=== PATIENT | female | born 1955 | race Caucasian/White ===

== ENCOUNTER → 2016-09-05 | Outpatient (CLI) | payer BC ==
[~2016-09-05] MED LIST: ASCA500 PO; B-COCAP2 PO; B-COTAB18 PO; BND25 PO; CALCTAB7 PO; CHOL100027 PO; COEN100C3 PO; CYAN10005 PO; EPP3/2 IM; EPP3/2 INJ; LORA10TA5 PO; MULTTAB PO; OMEGCAP2 PO; PARO1TAB27 PO; PRD/1 PO; PRED20TA PO; TOCI20IN INJ
--- NOTE | 2016-09-06 07:39 | MAMMOGRAPHY REPORT ---
BILATERAL DIGITAL SCREENING MAMMOGRAM WITH CAD: 09/05/2016 CLINICAL HISTORY: Routine screening. Patient has no complaints. TECHNIQUE: Bilateral CC and MLO views were obtained. Current study was also evaluated with a Compu ter Aided Detection (CAD) system. COMPARISON: Comparison is made to exams dated: 09/03/2015 mammogram, 07/18/2013 mammogram, 08/21/2014 m ammogram, 07/10/2012 mammogram, 06/29/2011 mammogram, and 06/01/2010 mammogram - [facility]. BREAST COMPOSITION: The tissue of both breasts is heterogeneously dense, which may obscure small ma sses. FINDINGS: There are a few stable benign-appearing right breast microcalcifications. Stable asymmet ry in the superior posterior right breast on the MLO view. No new suspicious mass, architectural di stortion or cluster of microcalcifications is seen. IMPRESSION: ACR BI-RADS CATEGORY 1: NEGATIVE There is no mammographic evidence of malignancy. A 1 year screening mammogram is recommended. The p atient will receive written notification of the results. Approximately 10% of breast cancers are not detected with mammography. A negative mammographic repor t should not delay biopsy if a clinically suggestive mass is present. Loretta Salazar M.D. ay/:09/05/2016 17:59:57 Marketing Editor: Grace HUSSEIN(Jose Roberto)(M), [facility] letter sent: Normal 1/2 BI-RADS Code: ACR BI-RADS Category 1: Negative
== END | disposition home or self-care (01) ==
LOC: C.MAMM 12:48
PROVIDERS: ATTEND Internal Medicine
DX: Z12.31 Encounter for screening mammogram for malignant neoplasm of breast (principal)

== ENCOUNTER 2016-12-09 15:40 | Emergency (ER) | payer BC ==
[~2016-12-09] VITALS: Ht 167.6 cm; Wt 66.7 kg
[~2016-12-09 15:40] MED LIST changes: -B-COTAB18 PO; -BND25 PO; -COEN100C3 PO; +DIPH25CA5 PO; -EPP3/2 IM; -PRED20TA PO
[2016-12-09 15:44] VITALS: TEMP 36.4; Ht 167.6 cm; Wt 66.7 kg
[2016-12-09] MEDS ORDERED: B-COTAB18 PO (16:04)
[2016-12-09] MEDS ORDERED: RANITIDINE HCL 50 MG/100 ML D5W IV STA (16:10)
[2016-12-09] MEDS ORDERED: DiphenhydrAMINE HCL 50 MG/ML VIAL IV STA (16:10)
[2016-12-09] MEDS ORDERED: DEXAMETHASONE SOD INJ 10 MG/ML VIAL IV ONE (16:15)
[2016-12-09 16:48] VITALS: O2SAT 99
[2016-12-09 17:27] LABS: BASO % 0.3 %; BASO ABS # 0.02 K/uL (0-0.2); COMPLETE YES; EOS % 1.5 %; HEMATOCRIT 44.1 % (37-47); IG% 0.3 %; LYMPH % 25.7 %; LYMPH ABS # 1.69 K/uL (1.2-3.4); MEAN CORPUSCULAR HEMOGLOBIN 34.1 pg (25-34); MEAN CORPUSCULAR HGB CONC 36.3 g/dl (32-36); MEAN PLATELET VOLUME 9.8 fL (7.4-10.4); MONO % 7.9 %; NEUT % 64.3 %; PLATELET COUNT 244 K/uL (130-400); RED BLOOD COUNT 4.69 M/uL (4.2-5.4); WHITE BLOOD COUNT 6.57 K/uL (4.8-10.8)
[2016-12-09] MEDS ORDERED: EPINEPHRINE ADULT AUTO-INJECT 0.3 MG SYR IM PRN (17:30)
--- NOTE | 2016-12-09 17:30 | EMERGENCY ROOM VISIT NOTE ---
History First contact with patient: 16:05 Chief Complaint: ALLERGIC REACTION Stated Complaint: ALLERGIC REACTION TO BEE STING History of Present Illness The patient is a 61 year old female who presents to the Emergency Room with complaints of allergic reaction to a bee sting on her left hand. The patient states approximately 2 hours ago she reached in her mailbox and was stung by what she thinks was a wasp in her mailbox. The patient states she started getting a rash over most of her torso and arms. The patient denies any throat or chest tightness. The patient states that she has had one bee sting in the past and had swelling to the area where she got stung as well as a few hives. She was told at that time by her family doctor that if she got stung again it could be worse. The patient has an EpiPen at home but she thinks it's . The patient took 50 mg of Benadryl and a 5 mg tablet of prednisone. Review of Systems 10 system review was performed and was negative unless stated otherwise history of present illness. Past Medical/Surgical History Medical Problems: (1) Rheumatoid arthritis Family History Cancer Heart disease Hypertension Social History Smoking Status: Never Smoker Marital Status: Occupation Status: employed Current/Historical Medications Scheduled Ascorbic Acid (Vitamin C), 1 TAB PO DAILY B-Complex Vitamins (Vitamin B Complex), 1 TAB PO DAILY Cholecalciferol (Vitamin D 1000 Unit), 2,000 INTER.UNIT PO DAILY Cyanocobalamin (Vitamin B-12), 1,000 MCG PO DAILY Diphenhydramine Hcl (Benadryl), 50 MG PO Q4-6HR PRN Multivitamins/Minerals (Mvi With Minerals), 1 TAB PO DAILY [place]-3 Fatty Acids (Fish Oil), 1 CAP PO DAILY Paroxetine (Paxil), 20 MG PO DAILY Prednisone (Prednisone), 3 MG PO QAM Tocilizumab (Actemra), 1 DOSE INJ WK Allergies Coded Allergies: BEE STING (Verified Allergy, Severe, ANAPHYLAXIS, 06/12/15) Latex1 -Allergic Contact Dermititis (Unverified Allergy, Mild, 06/12/15) DEJAN Inhibitors (Verified Allergy, Unknown, 06/12/15) Adhesives (Verified Allergy, Unknown, 06/12/15) Aspirin (Verified Allergy, Unknown, SENSITIVE, 06/12/15) Physical Exam Vital Signs Date Time Temp Pulse Resp B/P (MAP) Pulse Ox O2 Delivery O2 Flow Rate FiO2 12/09/16 17:01 66 96 12/09/16 16:59 163/87 12/09/16 16:49 97 Room Air 12/09/16 16:48 99 Room Air 12/09/16 16:40 68 20 99 12/09/16 16:10 68 28 99 12/09/16 16:00 136/84 12/09/16 15:56 75 12/09/16 15:44 36.4 78 20 130/86 97 Room Air Physical Exam GENERAL: 61-year-old white female appears in no acute distress. MENTAL Status: Alert and oriented 3. PHARYNX: No erythema or edema noted. Airway is adequate. MOUTH: No edema of the lips noted. NECK: Supple, no lymphadenopathy noted. No carotid bruits noted. LUNGS: Clear auscultation without wheezes rales or rhonchi. CARDIAC: Regular rate and rhythm without murmur. Pulses is full and equal throughout. SKIN: Patient has a erythematous rash as well as hives noted on her torso, arms and hands as well as her upper thighs. Remainder of lower extremities are clear. There is no rash on her face. Medical Decision & Procedures Laboratory Results 12/09/16 16:05 Red Blood Count 4.69, Mean Corpuscular Volume 94.0, Mean Corpuscular Hemoglobin 34.1, Mean Corpuscular Hemoglobin Concent 36.3, Mean Platelet Volume 9.8, Neutrophils (%) (Auto) 64.3, Lymphocytes (%) (Auto) 25.7, Monocytes (%) (Auto) 7.9, Eosinophils (%) (Auto) 1.5, Basophils (%) (Auto) 0.3, Neutrophils # (Auto) 4.22, Lymphocytes # (Auto) 1.69, Monocytes # (Auto) 0.52, Eosinophils # (Auto) 0.10, Basophils # (Auto) 0.02 Test 12/09/16 16:05 White Blood Count 6.57 K/uL (4.8-10.8) Red Blood Count 4.69 M/uL (4.2-5.4) Hemoglobin 16.0 g/dL (12.0-16.0) Hematocrit 44.1 % (37-47) Mean Corpuscular Volume 94.0 fL (80-100) Mean Corpuscular Hemoglobin 34.1 pg (25-34) Mean Corpuscular Hemoglobin Concent 36.3 g/dl (32-36) Platelet Count 244 K/uL (130-400) Mean Platelet Volume 9.8 fL (7.4-10.4) Neutrophils (%) (Auto) 64.3 % Lymphocytes (%) (Auto) 25.7 % Monocytes (%) (Auto) 7.9 % Eosinophils (%) (Auto) 1.5 % Basophils (%) (Auto) 0.3 % Neutrophils # (Auto) 4.22 K/uL (1.4-6.5) Lymphocytes # (Auto) 1.69 K/uL (1.2-3.4) Monocytes # (Auto) 0.52 K/uL (0.11-0.59) Eosinophils # (Auto) 0.10 K/uL (0-0.5) Basophils # (Auto) 0.02 K/uL (0-0.2) RDW Standard Deviation 43.6 fL (36.4-46.3) RDW Coefficient of Variation 12.8 % (11.5-14.5) Immature Granulocyte % (Auto) 0.3 % Immature Granulocyte # (Auto) 0.02 K/uL (0.00-0.02) Medications Administered Medications (Trade) Dose Ordered Sig/Franca Route Start Time Stop Time Status Last Admin Dose Admin Dexamethasone Sodium Phosphate (Decadron Inj) 10 mg NOW ONCE IV 12/09/16 16:15 12/09/16 16:16 DC 12/09/16 16:22 10 MG Diphenhydramine HCl (Benadryl Inj) 25 mg NOW STAT IV 12/09/16 16:10 12/09/16 16:12 DC 12/09/16 16:21 25 MG Ranitidine HCl (zANTac IV) 50 mg NOW STAT IV 12/09/16 16:10 12/09/16 16:12 DC 12/09/16 16:24 50 MG ED Course The patient was evaluated. IV access was obtained. The patient was placed on a continuous pulse ox. The patient was given Decadron 10 mg IV, Benadryl 25 mg IV and Zantac 50 mg IV. The patient was reevaluated on multiple occasions. After 90 minutes the patient did not have any rash except for a small area of erythema on her left hand where she was actually stung by the wasp. The patient was given an EpiPen. The patient was discharged home in stable condition. Medical Decision Differential diagnosis include localized allergic reaction/anaphylaxis/ angioedema Impression Primary Impression: Allergic reaction Departure Information Dispostion Home / Self-Care Condition GOOD Referrals Pro,Rodney Najera M.D. (PCP) Forms HOME CARE DOCUMENTATION FORM, IMPORTANT VISIT INFORMATION Patient Instructions ED Allergic Reaction General Other, Replaced By [facility] Additional Instructions Continue Benadryl 25 mg every 6 hours until rash and/or swelling has completely resolved. Continue your prednisone as prescribed for your rheumatoid arthritis. If you have any recurrent bee stings that you get throat or chest tightness use the EpiPen as directed. Problem Qualifiers Primary Impression: Allergic reaction Encounter type: initial encounter Qualified Codes: T78.40XA - Allergy, unspecified, initial encounter
[2016-12-09 17:35] LABS: BUN/CREATININE RATIO 15.3 (10-20); CALCIUM 9.1 mg/dl (8.5-10.1); CREATININE 1.2 mg/dl (0.60-1.20); POTASSIUM 3.5 mmol/L (3.5-5.1)
[2016-12-09 17:54] VITALS: BP 177/91; PULSE 74; O2SAT 98
== END 2016-12-09 17:55 | disposition home or self-care (01) ==
LOC: C.EDB 15:41 → C.EDA 17:55
DX: T78.40XA Allergy, unspecified, initial encounter (principal); X58.XXXA Exposure to other specified factors, initial encounter; M06.9 Rheumatoid arthritis, unspecified; Z79.899 Other long term (current) drug therapy; Z88.6 Allergy status to analgesic agent; Z88.8 Allergy status to other drugs, medicaments and biological substances; Z91.030 Bee allergy status; Z91.040 Latex allergy status; Z82.79 Family history of other congenital malformations, deformations and chromosomal abnormalities

== ENCOUNTER 2017-02-10 18:37 | Emergency (ER) | payer BC ==
[~2017-02-10] VITALS: Ht 167.6 cm; Wt 67.0 kg
[~2017-02-10 18:37] MED LIST changes: -B-COCAP2 PO; +B-COTAB18 PO; +BND25 PO; -CALCTAB7 PO; -DIPH25CA5 PO; -EPP3/2 INJ; -LORA10TA5 PO
[2017-02-10 18:39] VITALS: TEMP 36.6; Ht 167.6 cm; Wt 67.0 kg
[2017-02-10] MEDS ORDERED: SODIUM CHLORIDE 0.9% 1000ML 1,000 ML IV STA (18:55)
[2017-02-10] MEDS ORDERED: DiphenhydrAMINE HCL 50 MG/ML VIAL IV STA (18:55)
[2017-02-10] MEDS ORDERED: RANITIDINE HCL 50 MG/100 ML D5W IV STA (18:55)
[2017-02-10] MEDS ORDERED: DEXAMETHASONE SOD INJ 10 MG/ML VIAL IV ONE (19:00)
--- NOTE | 2017-02-10 19:00 | EMERGENCY ROOM VISIT NOTE ---
History Report prepared by Giuseppe: Lilia Julien Under the Supervision of: Dr. Maico Hernández M.D. First contact with patient: 18:41 Chief Complaint: ALLERGIC REACTION Stated Complaint: BEE STING, ALLERGIC REACTION History of Present Illness The patient is a 61 year old female who presents to the Emergency Room with complaints of an episode of an allergic reaction starting an hour ago. The patient states that she was stung by a bee and is allergic to bees. She states that she gave her self her Epi-pen in her right thigh. The patient reports that she was on the deck watching the dog when it stung her on her finger. She notes that her hand swelled up. The patient currently rates her pain as a 7/10 in severity. She notes that this was the third time stung by a bee. She reports that the first time she was stung her hand became swollen and she went to her PCP who said she would be okay. She states that the second time she did not have an Epi-pen. She reports that she became short of breath, had a rash, and was almost passing out. The patient states she came to the hospital for that episode and was not given epinephrine here. The patient complains of feeling jittery. The patient denies feeling short of breath, wheezing, a rash, her heart racing, fevers, chills, nausea, vomiting, diarrhea, cough and congestion. Source of History: patient Onset: an hour ago Position: other (global) Symptom Intensity: 7/10 Quality: other (global) Timing: other (episode) Associated Symptoms: No fevers, No chills, No cough, No SOB, No nausea, No vomiting, No diarrhea, No rash Note: The patient complains of feeling jittery. The patient denies feeling wheezy, her heart racing, and congestion. Review of Systems See HPI for pertinent positives and negatives. A total of ten systems were reviewed and were otherwise negative. 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 (2) Rheumatoid arthritis Family History Cancer Heart disease Hypertension Social History Smoking Status: Never Smoker Marital Status: Housing Status: lives with significant other Occupation Status: employed Current/Historical Medications Scheduled B-Complex Vitamins (Vitamin B Complex), 1 TAB PO DAILY Cholecalciferol (Vitamin D 1000 Unit), 2,000 INTER.UNIT PO DAILY Coenzyme Q10 (Ubidecarenone) (Co Q-10), 1 CAP PO DAILY Cyanocobalamin (Vitamin B-12), 1,000 MCG PO DAILY Diphenhydramine Hcl (Benadryl), 50 MG PO Q4-6HR PRN Multivitamins/Minerals (Mvi With Minerals), 1 TAB PO DAILY [place]-3 Fatty Acids (Fish Oil), 1 CAP PO DAILY Paroxetine (Paxil), 20 MG PO DAILY Prednisone (Prednisone), 3 MG PO QAM Prednisone (Prednisone), 0 PO DAILY Tocilizumab (Actemra), 1 DOSE INJ WK Scheduled PRN Epinephrine (Epipen), 0.3 MG IM UD PRN for ALLERGIC REACTION Allergies Coded Allergies: BEE STING (Verified Allergy, Severe, ANAPHYLAXIS, 06/12/15) Latex1 -Allergic Contact Dermititis (Unverified Allergy, Mild, 06/12/15) DEJAN Inhibitors (Verified Allergy, Unknown, 06/12/15) Adhesives (Verified Allergy, Unknown, 06/12/15) Aspirin (Verified Allergy, Unknown, SENSITIVE, 06/12/15) Physical Exam Vital Signs Date Time Temp Pulse Resp B/P (MAP) Pulse Ox O2 Delivery O2 Flow Rate FiO2 02/10/17 21:22 70 16 145/80 98 02/10/17 20:39 74 16 168/87 99 Room Air 02/10/17 20:01 76 02/10/17 19:27 100 Room Air 02/10/17 19:27 77 16 100 Room Air 02/10/17 18:39 36.6 97 20 170/86 97 Room Air Physical Exam GENERAL: Awake, alert, anxious-appearing, in no acute distress HENT: Normocephalic, atraumatic. Dry mucus membranes. EYES: Normal conjunctiva. Sclera non-icteric. NECK: Supple. No nuchal rigidity. FROM. No JVD. RESPIRATORY: Clear to auscultation. CARDIAC: Regular rate, normal rhythm. Extremities warm and well perfused. Pulses equal. ABDOMEN: Soft, non-distended. No tenderness to palpation. No rebound or guarding. No masses. RECTAL: Deferred. MUSCULOSKELETAL: Chest examination reveals no tenderness. The back is symmetrical on inspection without obvious abnormality. There is no CVA tenderness to palpation. Right hand has 2+ edema at the dorsal aspect without warmth or crepitus, active and passive ROM intact. LOWER EXTREMITIES: Calves are equal size bilaterally and non-tender. No edema. No discoloration. NEURO: Normal sensorium. No sensory or motor deficits noted. SKIN: No rash or jaundice noted. Medical Decision & Procedures Medications Administered Medications (Trade) Dose Ordered Sig/Franca Route Start Time Stop Time Status Last Admin Dose Admin Dexamethasone Sodium Phosphate (Decadron Inj) 10 mg NOW ONCE IV 02/10/17 19:00 02/10/17 19:01 DC 02/10/17 19:20 10 MG Ranitidine HCl (zANTac IV) 50 mg NOW STAT IV 02/10/17 18:55 02/10/17 19:00 DC 02/10/17 19:19 50 MG Diphenhydramine HCl (Benadryl Inj) 25 mg NOW STAT IV 02/10/17 18:55 02/10/17 19:00 DC 02/10/17 19:20 25 MG Sodium Chloride 1,000 ml @ 999 mls/hr Q1H1M STAT IV 02/10/17 18:55 02/10/17 19:55 DC 02/10/17 19:19 999 MLS/HR ED Course 1845: The patient was evaluated in room B7. A complete history and physical exam was performed. 1855: Ordered 1000 ml @ 999 mls/hr IV, Benadryl Inj 25 mg IV, Ranitidine HCl 50 mg IV. 0: Ordered Decadron Inj 10 mg IV. 2039: I reevaluated the patient. Discussed results and discharge instructions: She verbalized understanding and agreement. The patient is ready for discharge. Medical Decision I reviewed the patient's past medical history, medications, and the nursing notes as described above. Differential diagnoses include early anaphylaxis vs severe allergic reaction vs localized reaction, cellulitis. Patient is a 61-year-old woman who presents emergency Department with allergic reaction after a bee sting 1 hour [employer]EL[employer] where she applied her EpiPen in her right thigh secondary to rapid swelling in her right hand and a history of prior allergic reactions per history of present illness. Arrival the patient appears mildly anxious but otherwise in no acute distress. Afebrile with stable vital signs. Right hand with 2+ edema without any warmth or crepitus consistent with a localized reaction on the dorsum of her right fifth phalanx. No stridor on auscultation of the neck. Oropharyngeal edema. Lungs clear to auscultation bilaterally. No rashes. Considering the patients history of allergic reaction and possibility of early anaphylaxis will treat with steroids, Benadryl , and, Zantac. Will observe. Patient was observed and showed improvement with right extremity swelling. Otherwise lungs clear to auscultation bilaterally. Findings and plan for follow- up d/w patient. Patient agreeable and d/c'd per discharge instructions. Impression Primary Impression: Allergic reaction Scribe Attestation The scribe's documentation has been prepared under my direction and personally reviewed by me in its entirety. I confirm that the note above accurately reflects all work, treatment, procedures, and medical decision making performed by me. Departure Information Dispostion Home / Self-Care Prescriptions Prednisone (Prednisone) 20 Mg Tab 0 PO DAILY for 5 Days, #15 TAB 3 TABS DAILY FOR 2 DAYS, THEN 2 TABS DAILY FOR 2 DAYS, THEN 1 TAB DAILY FOR 2 DAYS, THEN 1/2 TAB DAILY FOR 2 DAYS. Prov: Maico Hernández M.D. 02/10/17 Epinephrine (EPIPEN) 0.3 Mg/0.3 Ml Inj 0.3 MG IM UD Y for ALLERGIC REACTION, #1 SYR Prov: Maico Hernández M.D. 02/10/17 Referrals Pro,Rodney Najera M.D. (PCP) Forms HOME CARE DOCUMENTATION FORM, IMPORTANT VISIT INFORMATION Patient Instructions ED Anaphylaxis General, ED Bite Sting Insect Gen Allergic React, My [facility] Additional Instructions Please follow up with your primary care physician in the next 1-3 days. Your exam did not show signs of an emergent condition at this time. If your symptoms do not improve over the next couple of days begin prednisone as directed. Benadryl every 6 hours as needed for itching. Return to the emergency department for worsening symptoms as described in the accompanying instructions.
[2017-02-10] MEDS ORDERED: EPP3/2 IM (19:10)
[2017-02-10] MEDS ORDERED: PRED20TA PO (19:10)
[2017-02-10] MEDS ORDERED: COEN100C3 PO (19:14)
[2017-02-10 19:27] VITALS: O2SAT 100
[2017-02-10 21:22] VITALS: BP 145/80; PULSE 70; O2SAT 98
== END 2017-02-10 21:23 | disposition home or self-care (01) ==
LOC: C.EDB 18:39
DX: T63.441A Toxic effect of venom of bees, accidental (unintentional), initial encounter (principal); S60.469A Insect bite (nonvenomous) of unspecified finger, initial encounter; W57.XXXA Bitten or stung by nonvenomous insect and other nonvenomous arthropods, initial encounter; Y92.009 Unspecified place in unspecified non-institutional (private) residence as the place of occurrence of the external cause; M06.9 Rheumatoid arthritis, unspecified; Z91.038 Other insect allergy status; Z82.49 Family history of ischemic heart disease and other diseases of the circulatory system

== ENCOUNTER → 2017-02-19 | Outpatient (CLI) | payer BC ==
[~2017-02-19] MED LIST changes: -ASCA500 PO; +COEN100C3 PO; +EPP3/2 IM
--- NOTE | 2017-02-19 12:12 | DIAGNOSTIC IMAGING REPORT ---
RIGHT HIP UNILATERAL 2 VIEWS CLINICAL HISTORY: Rheumatoid arthritis. Right hip pain. COMPARISON: Pelvis radiograph May 21, 2012. FINDINGS: Alignment of the right hip is anatomic. There is no fracture or suspicious osseous lesion. There is mild joint space narrowing and moderate osteophytosis of the right hip. There is no evidence for avascular necrosis. IMPRESSION: 1. Moderate osteoarthritis of the right hip. 2. No fracture or osseous lesion identified. Electronically signed by: Alexander Ricks M.D. 02/19/2017 12:10 PM Dictated Date/Time: 02/19/2017 12:09 PM
--- NOTE | 2017-02-19 12:18 | DIAGNOSTIC IMAGING REPORT ---
LEFT HAND MIN 3 VIEWS ROUTINE CLINICAL HISTORY: 61 years-old Female presenting with rheumatoid arthritis, pain in the right hip and bilateral hands. TECHNIQUE: Frontal, oblique, and lateral views of the left hand were obtained. COMPARISON: None. FINDINGS: Severe joint space loss at the radiocarpal articulation most pronounced at the lunate fossa. Suggestion of widening of the scapholunate interval, which may suggest intraosseous ligament disruption. The lunate may be dorsally subluxed. Intercarpal joints not well assessed. No acute fracture. Mild osteopenia may be present. No gross soft tissue abnormality. Degenerative changes of the interphalangeal joint of the first finger. Remaining joints unremarkable. IMPRESSION: Arthritic changes at the radiocarpal articulation could be compatible with rheumatoid arthritis as described above. Dedicated radiographs of the wrist recommended. Degenerative changes of the interphalangeal joint of the first finger. Electronically signed by: Hemal Hawley M.D. 02/19/2017 12:17 PM Dictated Date/Time: 02/19/2017 12:14 PM
--- NOTE | 2017-02-19 12:21 | DIAGNOSTIC IMAGING REPORT ---
RIGHT HAND MIN 3 VIEWS ROUTINE HISTORY: 61 years-old Female M06.9 Rheumatoid [id number] High risk medication useM25.55 Right COMPARISON: Left hand radiographs of same day TECHNIQUE: 3 views of the right hand FINDINGS: Bones are moderately demineralized. Severe joint space narrowing with subchondral sclerosis involves the radiocarpal joint. There is marked remodeling with collapse involving the lunate. Erosions of the distal ulnar styloid are noted. Intercarpal joint space narrowing as well as first digit carpometacarpal joint space narrowing noted. Subcortical cystic changes are seen throughout the carpal bones. Joint space narrowing with marginal osteophytosis involves the second metacarpal phalangeal joint with associated soft tissue swelling. There also appears to be some central and perhaps some marginal erosions at this joint space. Mild joint space narrowing with marginal osteophytosis is seen at the third metacarpophalangeal joint. Interphalangeal joints appear relatively preserved. Mild soft tissue swelling seen about the wrist. IMPRESSION: 1. No acute fracture or dislocation. 2. Severe degenerative changes about the intercarpal and radiocarpal joints with findings suggesting SLAC wrist. 3. Erosions of the ulnar styloid and second carpal metacarpal joint are noted. 4. Marginal osteophytosis of the second and third metacarpophalangeal joints likely secondary to secondary osteoarthritis with background of erosive arthropathy. The above report was generated using voice recognition software. It may contain grammatical, syntax or spelling errors. Electronically signed by: Pipo Pro M.D. 02/19/2017 12:20 PM Dictated Date/Time: 02/19/2017 12:16 PM
== END | disposition home or self-care (01) ==
LOC: C.RAD1850 11:45
PROVIDERS: ATTEND Internal Medicine Rheumatology
DX: M06.9 Rheumatoid arthritis, unspecified (principal); M25.551 Pain in right hip; Z79.899 Other long term (current) drug therapy

== ENCOUNTER → 2017-04-05 | Outpatient (CLI) | payer BC | END | disposition home or self-care (01) | LOC: C.LABBC 15:24 | PROVIDERS: ATTEND Internal Medicine | DX: Z86.39 Personal history of other endocrine, nutritional and metabolic disease (principal); M85.80 Other specified disorders of bone density and structure, unspecified site; E55.9 Vitamin D deficiency, unspecified ==

== ENCOUNTER → 2017-06-04 | Outpatient (CLI) | payer BC ==
[~2017-06-04] MED LIST changes: -BND25 PO; +DIPH25CA5 PO
--- NOTE | 2017-06-04 15:16 | DIAGNOSTIC IMAGING REPORT ---
THYROID ULTRASOUND CLINICAL HISTORY: History of hyperparathyroidism. Neck swelling. COMPARISON STUDY: Thyroid ultrasound July 18, 2013. TECHNIQUE: Sonography of the thyroid gland was performed. FINDINGS: No extrathyroidal nodules are identified by sonography. The right thyroid lobe measures 3.8 x 1.6 x 1.5 cm and the left lobe measures 3.8 x 1.2 x 1.3 cm. A few tiny predominantly cystic isthmus nodules are unchanged and prior exam. These have benign imaging characteristics. IMPRESSION: 1. No change in a few tiny thyroid isthmus nodules since prior exam. No suspicious nodules by sonography. 2. No extrathyroidal nodules identified within the adjacent soft tissues. Electronically signed by: Alexander Ricks M.D. 06/04/2017 3:14 PM Dictated Date/Time: 06/04/2017 12:53 PM
== END | disposition home or self-care (01) ==
LOC: C.ULTR 12:33
PROVIDERS: ATTEND Internal Medicine
DX: R22.1 Localized swelling, mass and lump, neck (principal); Z86.39 Personal history of other endocrine, nutritional and metabolic disease

== ENCOUNTER → 2017-08-15 | Outpatient (CLI) | payer OTHER ==
[~2017-08-15] MED LIST changes: +ATOR-22 PO; -B-COTAB18 PO; -CHOL100027 PO; -COEN100C3 PO; +CYAN100020 PO; -CYAN10005 PO; -DIPH25CA5 PO; +MULT-506 PO; -MULTTAB PO; -OMEGCAP2 PO; -PARO1TAB27 PO; +PARO30TA3 PO; +SPIR25TA89 PO
--- NOTE | 2017-08-15 14:34 | DIAGNOSTIC IMAGING REPORT ---
L SHOULDER MIN 2 VIEWS ROUTINE CLINICAL HISTORY: 62 years-old Female presenting with M06.9 Rheumatoid [id number] High risk medication useM25.51. TECHNIQUE: Internal rotation, external rotation, Grashey views of the left shoulder were obtained. COMPARISON: Chest x-ray from 10/31/2010. FINDINGS: Mild degenerative changes of the acromioclavicular joint. Acromioclavicular and glenohumeral joints congruent. No acute fracture or malalignment. No radiographic soft tissue abnormality. Visualized portion of the left hemithorax normal. IMPRESSION: No acute osseous injury. Electronically signed by: Hemal Hawley M.D. 08/15/2017 2:33 PM Dictated Date/Time: 08/15/2017 2:32 PM
== END | disposition home or self-care (01) ==
LOC: C.RAD1850 14:22
PROVIDERS: ATTEND Internal Medicine Rheumatology
DX: M25.512 Pain in left shoulder (principal); Z79.899 Other long term (current) drug therapy; M06.9 Rheumatoid arthritis, unspecified

== ENCOUNTER → 2017-08-16 | Outpatient (CLI) | payer OTHER ==
--- NOTE | 2017-08-16 12:34 | DIAGNOSTIC IMAGING REPORT ---
L UPPER EXT JOINT WITHOUT CLINICAL HISTORY: 62 years-old Female with M06.9 Rheumatoid [id number] High risk medication useM25.51. Chronic left shoulder pain with history of rheumatoid arthritis COMPARISON: Left shoulder radiographs 08/15/2017 TECHNIQUE: Multiplanar, multi sequence MRI of the left shoulder was performed without intravenous contrast. FINDINGS: ROTATOR CUFF: High-grade partial-thickness tear involves the anteriormost insertional articular sided fibers of the supraspinatus tendon, 7 x 9 mm in transverse and AP dimension as seen on image 8 series 8 and image 19 series 6. Moderate associated tendinosis. Additionally, there is intermediate grade bursal fraying of the anterior and mid fibers adjacent to the acromium as described below. No definite full-thickness tear or retraction identified. No muscular atrophy of the supraspinatus tendon. The infraspinatus tendon demonstrates mild tendinosis without definite high-grade partial or full-thickness tear identified. The teres minor tendon is intact and unremarkable. Moderate tendinosis of the subscapularis tendon without definite high-grade partial or full-thickness tear identified. BICEPS TENDON: The long-head biceps tendon is intact. There is mild thickening of the intra-articular portion of the long head biceps tendon suggesting mild tendinosis. The biceps jerome and anchor are intact. LABRUM: There is mild fraying of the superior glenoid labrum without evidence of acute labral tear. There is no evidence for a paralabral cyst. GLENOHUMERAL JOINT: There is mild joint space narrowing of the glenohumeral joint without significant chondral thinning or intra-articular loose body. No large joint effusion of the glenohumeral joint. ACROMIOCLAVICULAR JOINT: There is mild to moderate degenerative changes of the AC joint with capsular hypertrophy, marginal spurring and chondral thinning. There is a mildly hooked type III morphology of the acromium nicely seen on image 11 of series 8 with coracohumeral interval measuring 5 mm. No evidence of os acromiale. There is significant subacromial/subdeltoid bursitis with associated synovitis. Bursal fluid collection measures up to 5.6 x 1.1 x 4.6 cm. OUTLET SPACES: The suprascapular notch and quadrilateral space are without obstructing or space occupying lesions. BONE MARROW: No focal abnormality, fracture or marrow occupying lesion. Minimal subcortical cystic changes of the posterior facet greater tuberosity. No evidence of erosive arthropathy. SOFT TISSUES: The periarticular soft tissues are unremarkable. IMPRESSION: 1. Type III morphology of the acromium with decreased acromiohumeral interval suggests subacromial impingement. 2. Intermediate grade bursal fraying of the anterior and mid fibers supraspinatus tendon is noted adjacent to the hooked acromium. 3. High-grade partial articular sided tearing of the anterior insertional fibers supraspinatus tendon with moderate tendinosis. 4. Extensive subacromial/subdeltoid bursitis with synovitis. 5. Mild to moderate degenerative changes of the AC joint. 6. No evidence of erosive arthropathy. The above report was generated using voice recognition software. It may contain grammatical, syntax or spelling errors. Electronically signed by: Pipo Pro M.D. 08/16/2017 12:32 PM Dictated Date/Time: 08/16/2017 12:01 PM
== END | disposition home or self-care (01) ==
LOC: C.MRIBC 10:34
PROVIDERS: ATTEND Internal Medicine Rheumatology
DX: M06.9 Rheumatoid arthritis, unspecified (principal); Z79.899 Other long term (current) drug therapy; M75.102 Unspecified rotator cuff tear or rupture of left shoulder, not specified as traumatic; M75.52 Bursitis of left shoulder

== ENCOUNTER → 2017-08-21 | Outpatient (CLI) | payer OTHER | END | disposition home or self-care (01) | LOC: C.RDSM 08:00 | PROVIDERS: ATTEND Physical Medicine & Rehabilitation Sports Medicine | DX: M75.112 Incomplete rotator cuff tear or rupture of left shoulder, not specified as traumatic (principal); Z88.6 Allergy status to analgesic agent; Z88.1 Allergy status to other antibiotic agents; Z91.048 Other nonmedicinal substance allergy status; Z91.018 Allergy to other foods; Z91.040 Latex allergy status ==

== ENCOUNTER → 2017-09-07 | Outpatient (CLI) | payer OTHER ==
--- NOTE | 2017-09-10 15:17 | MAMMOGRAPHY REPORT ---
BILATERAL DIGITAL SCREENING MAMMOGRAM TOMOSYNTHESIS WITH CAD: 09/07/2017 CLINICAL HISTORY: Routine screening. Patient has no complaints. TECHNIQUE: Breast tomosynthesis in addition to standard 2D mammography was performed. Current study was also evaluated with a Computer Aided Detection (CAD) system. COMPARISON: Comparison is made to exams dated: 09/05/2016 mammogram, 09/03/2015 mammogram, 08/21/2014 giuseppe mogram, 07/18/2013 mammogram, 07/10/2012 mammogram, and 06/29/2011 mammogram - [facility]. BREAST COMPOSITION: The tissue of both breasts is heterogeneously dense, which may obscure small mas ses. FINDINGS: No suspicious masses, calcifications, or areas of architectural distortion are noted in ei ther breast. There has been no significant interval change compared to prior exams. IMPRESSION: ACR BI-RADS CATEGORY 1: NEGATIVE There is no mammographic evidence of malignancy. A 1 year screening mammogram is recommended. The pa tient will receive written notification of the results. Approximately 10% of breast cancers are not detected with mammography. A negative mammographic report should not delay biopsy if a clinically suggestive mass is present. Payton Scott M.D. /:09/07/2017 15:21:09 [employer]er Gar[employer] Form: Grace Mendoza, [facility] letter sent: Normal 1/2 BI-RADS Code: ACR BI-RADS Category 1: Negative
== END | disposition home or self-care (01) ==
LOC: C.MAMM 13:04
PROVIDERS: ATTEND Internal Medicine
DX: Z12.31 Encounter for screening mammogram for malignant neoplasm of breast (principal)